=== PATIENT | female | born 1940 | race Caucasian/White ===

== ENCOUNTER 2017-01-31 12:38 | Day surgery (SDC) | payer OTHER ==
[~2017-01-31] VITALS: Ht 162.6 cm; Wt 68.0 kg
[~2017-01-31 12:38] MED LIST: 0.9% Sodium Chloride 1,000 ML IV SCH; CALC600T12 PO; ERGO2000 PO; LEVO88TA4 PO; Sodium Chloride LOK Flush 10 mL Syringe IV PRN; TRIA1CAP5 PO; fentaNYL-PF 50 mCg/mL 2 mL Inj IVPUSH PRN
[2017-01-31 13:21] VITALS: BP 150/80; PULSE 63; RESP 14; O2SAT 96
[2017-01-31] MEDS ORDERED: 0.9% Sodium Chloride 1,000 ML IV ONE (13:31)
[2017-01-31 14:01] VITALS: BP 124/66; PULSE 60; RESP 16; O2SAT 96
[2017-01-31 14:11] VITALS: BP 130/74; PULSE 61; RESP 16; O2SAT 94
[2017-01-31 14:37] VITALS: BP 125/69; PULSE 59; RESP 16; O2SAT 94
--- NOTE | 2017-01-31 15:01 | ENDO ---
[address] [address] ENDOSCOPY PROCEDURE PATIENT: WOLFGANG MESA : 1940 MR#: [id number] ADMIT: 01/31/2017 JOB ID: [id number] DATE: 01/31/2017 TYPE OF OPERATION: Colonoscopy. PREOPERATIVE DIAGNOSIS(ES): Abdominal pain, cancer screening. POSTOPERATIVE DIAGNOSIS(ES): Moderate sigmoid diverticulosis. ANESTHESIA: 1. Fentanyl 100 mcg. 2. Versed 5 mg IV administered. COMPLICATION: None. ESTIMATED BLOOD LOSS: Minimal. DESCRIPTION OF PROCEDURE: After risks and benefits were explained to the patient, informed consent was obtained. After anesthesia administered, colonoscope was then inserted from the rectum to the cecum. Mucosa carefully examined. Prep of the patient was excellent. After the procedure was done, the scope withdrawn and procedure terminated. FINDINGS: Upon inspection of the anus, no masses, hemorrhoids, ulcers, fissures that were seen. Throughout the entire examination, there was moderate sigmoid diverticulosis. No polyps or masses were seen. Retroflexion was normal. IMPRESSIONS: Moderate sigmoid diverticulosis. RECOMMENDATIONS: 1. High-fiber diet. 2. Repeat colonoscopy in 10 years for average risk colorectal cancer screening.
== END 2017-01-31 23:59 | disposition home or self-care (01) ==
LOC: END 12:38
PROVIDERS: ATTEND Internal Medicine Gastroenterology
DX: K57.30 Diverticulosis of large intestine without perforation or abscess without bleeding (principal); R10.30 Lower abdominal pain, unspecified
CPT/HCPCS: 45378; G0500; J7030